=== PATIENT | female | born 1990 | race Caucasian/White ===

== ENCOUNTER 2022-12-08 05:23 | Inpatient (IN) | payer BC ==
[2022-12-08] MEDS ORDERED: METHYLERGONOVINE 0.2 MG/ML 1 ML AMP IM PRN ×2 (06:09→17:22)
[2022-12-08] MEDS ORDERED: LIDOCAINE 0.5% (PF) 5 MG/ML (50 ML SDV) SQ PRN (06:09)
[2022-12-08] MEDS ORDERED: TERBUTALINE 1 MG/ML VIAL SQ PRN (06:09)
[2022-12-08] MEDS ORDERED: miSOPROStoL 200 MCG TAB PO PRN ×2 (06:09→17:22)
[2022-12-08] MEDS ORDERED: CARBOPROST TROMETHAMINE 250 MCG/ML 1 ML AMP IM PRN (06:09)
[2022-12-08] MEDS ORDERED: OXYTOCIN 10 UNIT/ML 1 ML VIAL IM PRN ×2 (06:09→17:22)
[2022-12-08] MEDS ORDERED: TRANEXAMIC ACID IN NACL,ISO-OS 1,000 MG in EMPTY BAG 1 BAG IV PRN ×2 (06:09→17:22)
[2022-12-08 06:20] LABS: Basophils % (A) 0 %; Eosinophils # (A) 0.2 k/uL (0-0.7); Eosinophils % (A) 2 %; HCT 38.9 % (34.0-46.0); HGB 13.1 gm/dL (11.4-16.0); Lymphocytes % (A) 19 %; MCH 27.5 pg (25.0-35.0); MCHC 33.7 g/dL (31.0-37.0); MCV 81.6 fL (80.0-100.0); Mean Platelet Volume 8.7; Monocytes # (A) 0.6 k/uL (0-1.0); Monocytes % (A) 6 %; Neutrophils # (A) 7.5 k/uL (1.3-7.7); Neutrophils % (A) 72 %; Platelet Count 283 k/uL (150-450); RBC 4.77 m/uL (3.80-5.40); RDW 14.8 % (11.5-15.5); WBC 10.5 k/uL (3.8-10.6)
[2022-12-08] MEDS: LACTATED RINGERS 1,000 ML IV SCH ×5 (06:30→22:15)
[2022-12-08] MEDS: OXYTOCIN 30 UNITS/500 ML NS 30 UNIT in SALINE 1 500ML.BAG IV SCH ×2 (06:31→20:17)
[2022-12-08] MEDS ORDERED: SODIUM CHLORIDE 0.9% 100 ML BAG ONE (09:36)
[2022-12-08] MEDS ORDERED: fentaNYL (PF) 50 MCG/ML 5 ML AMP ONE (09:36)
[2022-12-08] MEDS ORDERED: ROPIVACAINE 5 MG/ML 20 ML AMPULE ONE (09:36)
--- NOTE | 2022-12-08 09:57 | P.HPOB ---
History of Present Illness H&P Date: 12/08/22 Chief Complaint: Continuous rupture of membranes This is a 32-year-old 1 para 0 woman with an estimated due date of 12/06/2022 based on LMP consistent with first trimester ultrasound. She presents at 40-2/7 weeks' gestation with spontaneous rupture of membranes and contractions. Upon presentation to labor and delivery on rupture of membranes was confirmed. She was therefore admitted. Her has been complicated by moderate polyhydramnios which has been followed with testing in the outpatient setting. Estimated weight at 36 weeks was also greater than the 90th percentile. Laboratory data: Blood type be negative, antibody screen negative, rubella immune, VDRL nonreactive, hep to be surface antigen negative, HIV negative, gonorrhea and clinic cultures negative, glucose tolerance testing within normal limits, hemoglobin A1c 5.0, group B strep negative. Patient received RhoGAM and teed up in the . Review of Systems All systems: negative Past Medical History Past Medical History: No Reported History History of Any Multi-Drug Resistant Organisms: None Reported Additional Past Surgical History / Comment(s): wisdom teeth Smoking Status: Never smoker Past Drug Use History: None Reported Medications and Allergies Home Medications Medication Instructions Recorded Confirmed Type Aspirin 81 mg PO DAILY 12/08/22 12/08/22 History Vit No.179/Iron/Folic 1 each PO DAILY 12/08/22 12/08/22 History [ Tablet] Allergies Allergy/AdvReac Type Severity Reaction Status Date / Time cinnamon AdvReac Rash/Hives Verified 12/08/22 05:28 Exam Vital Signs Temp Pulse Resp BP Pulse Ox 12/08/22 06:09 96.8 F L 90 16 138/76 12/08/22 05:26 96.8 F L 90 16 138/76 98 Intake and Output 12/07/22 12/08/22 12/08/22 22:59 06:59 14:59 Other: Weight 93.894 kg Targeted physical exam is performed. This is a visibly gravid and uncomfortable-appearing female. On pelvic examination the cervix is 3 cm dilated 70% effaced with a bulging bag of fluids. Artificial rupture of membranes is undertaken and light meconium-stained fluid is noted. heart tones are category 1 and she is madelyn every 2-3 minutes with Pitocin augmentation. Estimated weight is 9+ pounds. Results Result Diagrams: 12/08/22 06:10 Assessment and Plan (1) Spontaneous onset of labor Current Visit: Yes Status: Acute Code(s): VBA5635 - SNOMED Code(s): 79760033 (2) Spontaneous rupture of membranes Current Visit: Yes Status: Acute Code(s): RWS3142 - SNOMED Code(s): 119021037 (3) Polyhydramnios Current Visit: Yes Status: Acute Code(s): O40.9XX0 - POLYHYDRAMNIOS, UNSP TRIMESTER, NOT APPLICABLE OR UNSP SNOMED Code(s): 40628585 (4) Rh negative, maternal Current Visit: Yes Status: Acute Code(s): O26.899 - OTH RELATED CONDITIONS, UNSPECIFIED TRIMESTER; Z67.91 - UNSPECIFIED BLOOD TYPE, RH NEGATIVE SNOMED Code(s): 351991517 (5) Meconium in amniotic fluid Current Visit: Yes Status: Acute Code(s): P96.83 - MECONIUM STAINING SNOMED Code(s): 7006359 Plan: This is a 32-year-old 1 para 0 woman admitted at 40-2/7 weeks' gestation with spontaneous rupture and early labor. She is currently receiving Pitocin augmentation and is progressed to 3 cm. A fore bag was ruptured and light meconium-stained fluid was noted. status is currently reassuring by external monitoring. She is requesting an epidural anesthetic for pain control. She is group B strep negative and Rh-. Continue active management. Patient's for possible shoulder dystocia for delivery have been reviewed with the nursing staff.
[2022-12-08] MEDS ORDERED: CITRIC ACID-SODIUM CITRATE 15 ML CUP PO ONE (17:22)
[2022-12-08] MEDS ORDERED: AZITHROMYCIN 500 MG in SODIUM CHLORIDE 0.9% 250 ML IVPB STA (17:36)
[2022-12-08] MEDS ORDERED: OXYTOCIN 30 UNITS/500 ML NS BAG IV ONE (18:17)
[2022-12-08] MEDS ORDERED: fentaNYL (PF) 50 MCG/ML 2 ML AMP ONE (18:17)
[2022-12-08] MEDS ORDERED: KETOROLAC 15 MG/ML 1 ML VIAL ONE (18:17)
[2022-12-08] MEDS ORDERED: MORPHINE SULFATE (PF) 0.3 MG/0.3 ML SYR ONE (18:17)
[2022-12-08] MEDS ORDERED: SIMETHICONE 80 MG CHEWABLE PO PRN (19:29)
[2022-12-08] MEDS ORDERED: NALOXONE 0.4 MG/ML 1 ML VIAL IV PRN (19:29)
[2022-12-08] MEDS ORDERED: diphenhydrAMINE 50 MG/ML 1 ML VIAL IVP PRN ×2 (19:29)
[2022-12-08] MEDS ORDERED: diphenhydrAMINE 25 MG CAP PO PRN (19:29)
[2022-12-08] MEDS ORDERED: ONDANSETRON 4 MG/2 ML VIAL IVP PRN (19:29)
[2022-12-08] MEDS ORDERED: diphenhydrAMINE 50 MG CAP PO PRN (19:29)
[2022-12-08] MEDS ORDERED: ZOLPIDEM 5 MG TAB PO PRN (19:29)
[2022-12-08] MEDS ORDERED: Rhogam IMMUNE GLOBULIN 1,500 UNIT/1 ML IM ONE (19:29)
[2022-12-08] MEDS ORDERED: METOCLOPRAMIDE 5 MG/ML 2 ML VIAL IVP PRN (19:29)
--- NOTE | 2022-12-08 19:29 | P.PCN ---
Date of Procedure: 12/08/22 Preoperative Diagnosis: 1. Post-dates at 40 weeks and 2 days 2. Failure to progress 3. Persistent category II heart tracing remote from delivery 4. Suspected large for gestational age infant 5. Polyhydramnios Postoperative Diagnosis: Same Procedure(s) Performed: Primary Lower Transverse Section Implants: None Anesthesia: epidural Surgeon: Leann Saavedra Infant Lead Teacher #1: Deborah Balderrama Estimated Blood Loss (ml): 1,987 IV fluids (ml): 1,000 Urine output (ml): 300 Pathology: none sent Condition: stable Disposition: floor Indications for Procedure: This is a 32-year-old 1 para 0 at 40 weeks and 2 days who presented to labor and delivery this morning with spontaneous rupture of membranes and regular uterine contractions. Labor was augmented with Pitocin. Of note, during the fetus was Suspected to be large for gestational age and polyhydramnios was noted. Category II FHT were noted and managed following algorithm including initiation of corrective measures including position changes and fluid boluses. With the persistent presence of intermittent late decelerations, minimal variability, and tachycardia, a patient-centered huddle was held and the need for an expedited deliver was discussed with the patient. It is our clinical recommendation to proceed with the delivery and after questions were answered to the patient agrees to proceed with the recommended plan. The risks, benefits, and alternatives to section were discussed with the patient including risk of bleeding, infection, damage to s urrounding structures including bladder/bowel/ureters. The patient understood these risks and desired to proceed with section. All questions were answered prior to proceeding. Operative Findings: Meconium-stained fluid noted. Viable male in occiput anterior presentation, apgars 9/9, weight 8#15oz. Normal-appearing uterus, bilateral fallopian tubes and ovaries. Description of Procedure: The patient was taken to the operating room where spinal anesthesia was found to be adequate. Two grams of ancef and 500 milligrams of Azithromycin were given for infection prophylaxis. She was prepared vaginally and abdominally. She was draped in the dorsal supine position with a leftward tilt. A Pfannenstiel skin incision was made with the scalpel. The incision was carried down to the fascia. The fascia was incised and extended laterally with Powers scissors. The superior aspect of the fascia was grasped with Chante clamps. The underlying rectus muscle was dissected off sharply with Powers scissors. In a similar fashion, the inferior aspect of the fascia was elevated with Chante clamps and the rectus muscle and pyramidalis were dissected off. Excellent hemostasis was achieved with the bovie. The rectus muscle was in the midline down to the level of the pubic symphysis. Pre-peritoneal fatty tissue was bluntly dissected to expose the peritoneum. The peritoneum was found to be free of adherent bowel and entered sharply with Powers scissors. The peritoneal incision was extended superiorly and inferiorly to the bladder reflection with good visualization of the bladder. The bladder blade was inserted and vesicouterine peritoneum was identified. Intraabdominal survey revealed scant, clear peritoneal fluid and the thinned-out lower uterine segment. The vesicouterine peritoneum was opened with scissors and the bladder flap was developed. The bladder blade was repositioned to keep the bladder out of the operative field. The lower uterine segment was incised with a scalpel. Meconium stained fluid was noted. The uterine incision was extended bluntly with lateral and upward traction. The fetus was in direct occiput anterior position. The head was elevated out of the pelvis with special attention paid to avoid using the uterine incision as a fulcrum. Gentle fundal pressure was applied once the head was brought into the incision. The was delivered with no difficulty. The mouth and nose were suctioned with a bulb. The cord was clamped and cut. The infant was handed off to the home and family living professor. IV oxytocin was initiated to facilitate uterine contractions. The placenta was delivered intact with manual massage of uterine fundus. The uterus was then exteriorized and the inside of the uterus was gently wiped with a lap sponge to assure complete removal of placental membranes. The uterine incision was closed with a 0-Polysorb suture in a running locked fashion. A second imbricating layer with 0-Polysorb was placed. Additional myfznj-dw-yfvjz sutures were used to facilitate hemostasis along the incision. The ovaries and tubes were found to be normal. The uterus, tubes, and ovaries were then gently returned to the abdominal cavity. The blood clots and fluid were wiped out of the abdomen and pelvis with moist laparotomy sponges. The uterine incision was reinspected and excellent hemostasis was noted. The fascial layer was closed with a 0-Vicryl suture. The subcutaneous layer was reapproximated with 2-0 Plain Gut. The skin was closed with 4-0 Monocryl in a subcuticular fashion. The patient tolerated t he procedure well. All the counts were correct times two. The patient was taken to the recovery room in a stable condition.
[2022-12-08] MEDS: ACETAMINOPHEN TAB 500 MG TAB PO SCH (22:20)
[2022-12-08] MEDS: SENNOSIDES-DOCUSATE SODIUM 1 EACH TAB PO SCH (22:21)
[2022-12-08 23:16] LABS: Basophils % (A) 0 %; Eosinophils % (A) 0 %; HCT 34.3 % (34.0-46.0); HGB 11.3 gm/dL (11.4-16.0); Lymphocytes # (A) 1.3 k/uL (1.0-4.8); Lymphocytes % (A) 10 %; MCH 27.1 pg (25.0-35.0); MCHC 32.9 g/dL (31.0-37.0); MCV 82.5 fL (80.0-100.0); Mean Platelet Volume 8.6; Monocytes # (A) 0.6 k/uL (0-1.0); Monocytes % (A) 5 %; Neutrophils # (A) 10.3 k/uL (1.3-7.7); Neutrophils % (A) 84 %; Platelet Count 235 k/uL (150-450); RBC 4.15 m/uL (3.80-5.40); WBC 12.3 k/uL (3.8-10.6)
[2022-12-09] MEDS: KETOROLAC 15 MG/ML 1 ML VIAL IVP SCH ×3 (00:17→06:04)
--- NOTE | 2022-12-09 05:48 | P.PN ---
Progress Note - Text Progress Note Date: 12/09/22 ([id number]) Anesthesia Postop day 1 Subjective: Status Post section with Duramorph. Patient seen and examined. Doing well without complaint. VAS 3 out of 10. No nausea vomiting or pruritus. Afebrile. Gross lower extremity strength intact. Without apparent anesthetic complications. Objective: Vital signs reviewed Heart: Regular Rate Lungs: Good chest excursion Abdomen: Appears nondistended Assessment: Status post with Duramorph postop day 1 Plan: Continue current care with your medical management. Anticipated and the Duramorph section around time today. You may see increased pain needs around this time.
[2022-12-09] MEDS: LACTATED RINGERS 1,000 ML IV SCH ×2 (06:03→19:07)
[2022-12-09] MEDS: SENNOSIDES-DOCUSATE SODIUM 1 EACH TAB PO SCH ×2 (07:46→20:57)
--- NOTE | 2022-12-09 08:06 | P.PNOBGPC ---
Subjective - Subjective Principal diagnosis: s/p primary lower transverse section Interval history: The patient is doing well this morning and had no acute events overnight. She has no complaints this morning. She reports minimal lochia, passing flatus, voiding without difficulty, ambulating, and eating/drinking without nausea or vomiting. She is her without difficulty. She denies chest pain, shortness of breathing, fevers, or chills overnight. She denies pain or swelling in the legs. Patient reports: Reports appetite normal, Reports voiding normally, Reports pain well controlled, Reports ambulating normally : doing well, nursing well Objective - Vital Signs Latest vital signs: Vital Signs Temp Pulse Pulse Resp BP Pulse Ox 12/09/22 03:56 98.2 F 91 16 125/83 95 12/09/22 00:00 97.8 F 84 16 122/77 99 12/08/22 21:17 96 16 125/74 12/08/22 20:47 87 16 126/69 12/08/22 20:17 80 16 119/71 100 12/08/22 20:02 99 16 124/63 99 12/08/22 19:47 97.6 F 95 16 125/58 100 12/08/22 19:32 96 16 112/66 100 12/08/22 19:17 97.7 F 99 16 113/71 100 Intake and Output 12/08/22 12/09/22 12/09/22 22:59 06:59 14:59 Intake Total 233.834 Output Total 2370 1800 Balance -2136.166 -1800 Intake: Intake, IV Titration 233.834 Amount Oxytocin 30 Units/500 ml 233.834 Ns 30 unit In Saline 1 500ml.bag @ Per Protocol IV .Q0M [facility] Rx#:[id number] Output: Urine 300 1800 Uretheral (Haddad) 1400 Estimated Blood Loss 1978 Output, Quantitative 92 Blood Loss - Exam Extremities: Present: normal Abdomen: Present: normal appearance, soft Incision: Present: dressed Uterus: Present: normal, firm - Labs Labs: Abnormal Lab Results - Last 24 Hours (Table) 12/08/22 Range/Units 23:05 WBC 12.3 H (3.8-10.6) k/uL Hgb 11.3 L (11.4-16.0) gm/dL Neutrophils # 10.3 H (1.3-7.7) k/uL Assessment and Plan Assessment: 32 year old now POD#1 s/p 1LTCS at 40 weeks and 2 days 2/2 failure to progress Plan: Continue inpatient management. Patient meeting all postoperative milestones appropriately. Anticipate discharge home tomorrow.
[2022-12-09] MEDS: ACETAMINOPHEN TAB 500 MG TAB PO SCH ×4 (09:28→21:03)
[2022-12-09 12:02] VITALS: RESP 18
[2022-12-09] MEDS: IBUPROFEN 600 MG TAB PO PRN ×2 (12:20→18:33)
[2022-12-10] MEDS: IBUPROFEN 600 MG TAB PO PRN ×3 (00:52→14:18)
[2022-12-10] MEDS: ACETAMINOPHEN TAB 500 MG TAB PO SCH ×2 (03:05→11:40)
[2022-12-10] MEDS: SENNOSIDES-DOCUSATE SODIUM 1 EACH TAB PO SCH (08:15)
--- NOTE | 2022-12-10 09:26 | P.DS ---
Providers Date of admission: 12/08/22 05:55 Expected date of discharge: 12/10/22 Attending physician: Sera Llamas Primary care physician: Stated None Hospital Course: This is a 32-year-old now 1 para 1001 postoperative day #2 status post primary lower transverse section for failure to progress and persistent category 2 heart tracing. The patient is feeling well and desires discharge home today.The patient is doing well this morning and had no acute events overnight. She has no complaints this morning. She reports minimal lochia, passing flatus, voiding without difficulty, ambulating, and eating/drinking without nausea or vomiting. Infant doing well at bedside, will complete circumcision shortly. She denies chest pain, shortness of breathing, fevers, or chills overnight. She denies pain or swelling in the legs. Postoperative restrictions are reviewed with the patient including pelvic rest for 6 weeks, no lifting heavier than 15 pounds for 6 weeks. The patient is encouraged to call the office if she experiences any heavy bleeding, foul- smelling discharge, breast complaints, or any if she has any other concerns. She will follow up in the office with Dr. Llamas in 2 weeks for postoperative ex am. All questions are answered. Assessment: 32 year old POD#2 s/p 1LTCS 2/2 FTP, Persistent Cat II FHTs Patient Condition at Discharge: Good Plan - Discharge Summary Discharge Rx Participant: No New Discharge Prescriptions: New Ibuprofen [Motrin] 600 mg PO Q6HR PRN #30 tab PRN Reason: Mild Pain (Scale 1 To 3) oxyCODONE HCL [Roxicodone] 5 mg PO Q6HR PRN 3 Days #12 tab PRN Reason: Breakthrough Pain Acetaminophen Tab [Tylenol] 650 mg PO Q6H PRN #30 tab PRN Reason: Mild Pain (Scale 1 To 3) No Action Vit No.179/Iron/Folic [ Tablet] 1 each PO DAILY Aspirin 81 mg PO DAILY Discharge Medication List Aspirin 81 mg PO DAILY 12/08/22 [History] Vit No.179/Iron/Folic [ Tablet] 1 each PO DAILY 12/08/22 [History] Acetaminophen Tab [Tylenol] 650 mg PO Q6H PRN #30 tab 12/10/22 [Rx] Ibuprofen [Motrin] 600 mg PO Q6HR PRN #30 tab 12/10/22 [Rx] oxyCODONE HCL [Roxicodone] 5 mg PO Q6HR PRN 3 Days #12 tab 12/10/22 [Rx] Follow up Appointment(s)/Referral(s): Sera Llamas MD [STAFF PHYSICIAN] - 2 Weeks Patient Instructions/Handouts: Depression (DC), Bleeding (DC), (DC), How to Tell if Your Baby is Getting Enough Breast Milk (DC), How to Increase Your Milk Supply (DC) Activity/Diet/Wound Care/Special Instructions: No lifting heavier than 15 pounds for 6 weeks. Pelvic rest for 6 weeks. Discharge Disposition: HOME SELF-CARE
[2022-12-10 16:53] VITALS: BP 127/88; PULSE 78; TEMP 98.1
== END 2022-12-10 17:30 | disposition home or self-care (01) | DRG 788 ==
LOC: FBPOP 05:23 → 4FBP 05:55
PROVIDERS: ADMIT Obstetrics & Gynecology; ATTEND Obstetrics & Gynecology
PROC: 4A0HXCZ Measurement of Products of Conception, Cardiac Rate, External Approach (ICD-10-PCS; 2022-12-08)
PROC: 10907ZC Drainage of Amniotic Fluid, Therapeutic from Products of Conception, Via Natural or Artificial Opening (ICD-10-PCS; 2022-12-08)
PROC: 3E033VJ Introduction of Other Hormone into Peripheral Vein, Percutaneous Approach (ICD-10-PCS; 2022-12-08)
PROC: 10D00Z1 Extraction of Products of Conception, Low, Open Approach (ICD-10-PCS; principal; 2022-12-08 17:54)
DX: O76 Abnormality in fetal heart rate and rhythm complicating labor and delivery (principal); O40.3XX0 Polyhydramnios, third trimester, not applicable or unspecified; O36.63X0 Maternal care for excessive fetal growth, third trimester, not applicable or unspecified; O42.92 Full-term premature rupture of membranes, unspecified as to length of time between rupture and onset of labor; O77.0 Labor and delivery complicated by meconium in amniotic fluid; O48.0 Post-term pregnancy; O62.2 Other uterine inertia; Z37.0 Single live birth; Z3A.40 40 weeks gestation of pregnancy; Z79.82 Long term (current) use of aspirin; Z91.018 Allergy to other foods
CPT/HCPCS: 59025; 84112; 85025; 86850; 86900; 86901; 99213

== ENCOUNTER → 2023-06-21 | Outpatient (CLI) | payer BC ==
--- NOTE | 2023-06-21 09:03 | US ---
EXAMINATION TYPE: US abdomen complete DATE OF EXAM: 06/21/2023 COMPARISON: NONE CLINICAL INDICATION: Female, 32 years old with history of R10.11 RIGHT UPPER QUADRANT PAIN; RUQ pain that comes and goes. No other symptoms. TECHNIQUE: Multiple sonographic images of the abdomen are obtained. FINDINGS: EXAM MEASUREMENTS: Liver Length: 14.0 cm Gallbladder Wall: 0.4 cm CBD: 1.2 cm Spleen: 10.6 cm Right Kidney: 10.3 x 4.5 x 4.7 cm Left Kidney: 10.9 x 5.3 x 4.9 cm AEROBICS INSTRUCTOR NOTES: Limited visualization due to patient body habitus and overlying bowel gas Pancreas: Obscured by bowel gas Liver: Posterior aspect obscured by bowel gas. Gallbladder: Multiple echogenic foci seen throughout. Wall slightly thickened Evidence for sonographic Pate's sign: No CBD: dilated Spleen: wnl Right Kidney: No hydronephrosis or masses seen as best visualized Left Kidney: No hydronephrosis or masses seen as best visualized Upper IVC: wnl Abd Aorta: Prox obscured by bowel gas, mid and distal WNL The liver is homogenous. The intrahepatic portion of the IVC and proximal abdominal aorta are within normal limits. Common bile duct is unremarkable. The visualized portions of the pancreas are homoge nous. The spleen is unremarkable. Kidneys are symmetric and free of hydronephrosis. No renal lesio ns are seen. IMPRESSION: Multiple gallstones with mild gallbladder wall thickening.
== END | disposition home or self-care (01) ==
LOC: RADUSWWP 07:58
PROVIDERS: ATTEND Family Medicine
DX: K80.20 Calculus of gallbladder without cholecystitis without obstruction (principal); K82.8 Other specified diseases of gallbladder
CPT/HCPCS: 76700

== ENCOUNTER → 2023-07-06 | Day surgery (SDC) | payer BC ==
[2023-07-04 10:37] VITALS: BMI 34.0
[~2023-07-06] MED LIST: ACETAMINOPHEN TAB 500 MG TAB PO STA; DEXAMETHASONE SOD PHOSPHATE 4 MG/ML 1 ML VIAL IVP ONE; FAMOTIDINE 20 MG/2 ML VIAL IVP ONE; GLYCOPYRROLATE 0.2 MG/ML 2 ML VIAL ONE; HEPARIN SODIUM,PORCINE 5,000 UNIT/ML 1 ML VIAL SQ PRN; HYDROmorphone (PF) 1 MG/ML ONE; HYDROmorphone 0.5 MG/0.5 ML SYRINGE IVP PRN; INDOCYANINE GREEN 25 MG VIAL IV STA; KETAMINE HCL IN 0.9 % NACL 50 MG/5 ML SYRINGE ONE; KETOROLAC 15 MG/ML 1 ML VIAL ONE; LACTATED RINGERS 1,000 ML IV ONE; LIDOCAINE 0.5%-EPI 1:200,000 50 ML VIAL SQ ONE; LIDOCAINE 1% INJ 10MG/ML (20 ML MDV) ONE; MIDAZOLAM 2 MG/2 ML VIAL IV PRN; MIDAZOLAM 2 MG/2 ML VIAL ONE; NEOSTIGMINE 1 MG/ML 10 ML VIAL ONE; ONDANSETRON 4 MG/2 ML VIAL IVP STA; PHENYLEPHRINE 10 MG/ML VIAL ONE; PROPOFOL 10 MG/ML 20 ML VIAL IV ONE; ROCURONIUM 10 MG/ML (5 ML VIAL) IV ONE; SCOPOLAMINE 1 MG/72 HR PATCH TRANSDERM STA; SUCCINYLCHOLINE CHLORIDE 200 MG/10 ML VIAL IV ONE; fentaNYL (PF) 50 MCG/ML 2 ML AMP ONE
[2023-07-06] MEDS: LACTATED RINGERS 1,000 ML IV SCH ×2 (09:14→11:40)
[2023-07-06 09:20] LABS: Basophils # (A) 0.1 k/uL (0-0.2); Basophils % (A) 1 %; Eosinophils # (A) 0.3 k/uL (0-0.7); Eosinophils % (A) 4 %; HCT 45.7 % (34.0-46.0); HGB 14.7 gm/dL (11.4-16.0); Lymphocytes # (A) 2.2 k/uL (1.0-4.8); Lymphocytes % (A) 24 %; MCH 27.7 pg (25.0-35.0); MCHC 32.2 g/dL (31.0-37.0); Mean Platelet Volume 9.2; Monocytes # (A) 0.5 k/uL (0-1.0); Monocytes % (A) 6 %; Neutrophils % (A) 65 %; Platelet Count 287 k/uL (150-450); RBC 5.32 m/uL (3.80-5.40); RDW 14.5 % (11.5-15.5); WBC 9.3 k/uL (3.8-10.6)
[2023-07-06 09:32] LABS: ALT 283 U/L (4-34); AST 66 U/L (14-36); African American GFR (CKD) >90 (>60 ml/min/1.73 sqM); Albumin 4.8 g/dL (3.5-5.0); Alkaline Phosphatase 272 U/L (38-126); Anion Gap 14 mmol/L; Blood Urea Nitrogen 17 mg/dL (7-17); Calcium 9.5 mg/dL (8.4-10.2); Carbon Dioxide 24 mmol/L (22-30); Chloride 103 mmol/L (98-107); Glucose 82 mg/dL (74-99); Non-African American GFR(CKD) >90 (>60 ml/min/1.73 sqM); Potassium 3.9 mmol/L (3.5-5.1); Sodium 141 mmol/L (137-145); Total Bilirubin 1.1 mg/dL (0.2-1.3); Total Protein 8.3 g/dL (6.3-8.2)
--- NOTE | 2023-07-06 09:46 | P.GSHP ---
History of Present Illness H&P Date: 07/06/23 CHIEF COMPLAINT: Cholecystitis HISTORY OF PRESENT ILLNESS: The patient is a 32-year-old female who presents with history of epigastric including right upper quadrant abdominal pain. She underwent diagnostic studies for her gallbladder. Separately her clinical picture was consistent with cholecystitis. Now she presents for surgical intervention. PAST MEDICAL HISTORY: Please see list PAST SURGICAL HISTORY: Please see list MEDICATIONS: Please see list ALLERGIES: Please see list SOCIAL HISTORY: Please see list FAMILY HISTORY: Please see list REVIEW OF ORGAN SYSTEMS: CONSTITUTIONAL: No reports of fevers or chills. HEENT: Denies any troubles with the vision or hearing. ENDOCRINE: No reports of hypothyroidism. No diabetes. RESPIRATORY: No recent pneumonias. CARDIOVASCULAR: Denies chest pain or palpitations GI: No blood in stools or constipation. MUSCULOSKELETAL: Has occasional joint pain including back pain. NEURO: No seizure disorders or headaches. No recent stroke. PSYCH: No depression or suicidal ideation. GENITOURINARY: No active blood in urine. No urinary hesitancy. HEMATOLOGIC: No personal or family history of DVTs or pulmonary emboli. SKIN: No skin cancer. PHYSICAL EXAM: VITAL SIGNS: Afebrile vital signs stable GENERAL: Well-developed pleasant in no acute distress. HEENT: No scleral icterus. Extraocular movements grossly intact. Moist buccal mu cosa. NECK: Supple without lymphadenopathy. CHEST: Unlabored respirations. Equal bilateral excursions. CARDIOVASCULAR: Regular rate regular rhythm rhythm. Distal 2+ pulses. ABDOMEN: Soft, nondistended. Tender along the epigastrium and right upper quadrant. MUSCULOSKELETAL: No clubbing, cyanosis, or edema. NEURO: Cranial nerves II to XII within normal limits. No focal or lateralizing signs. PSYCH: Alert and oriented to person, place and time. SKIN: Well-perfused good skin turgor. ASSESSMENT: 1. Epigastric and right upper quadrant abdominal pain 2. Chronic cholecystitis 3. Symptomatic gallstones. PLAN: 1. Will need a robotic cholecystectomy possible open. Benefits and risks were described. 2. Heparin for DVT prophylaxis 5000 units. 3. Antibiotic prophylaxis. 4. CBC and CMP on day of procedure 5. Non-narcotic pre and post op pain management reviewed. 6. Indocyanine green for biliary imaging. Past Medical History Past Medical History: No Reported History Additional Past Medical History / Comment(s): 6 mos post , intermittent abd pain and n/v History of Any Multi-Drug Resistant Organisms: None Reported Past Surgical History: Section Additional Past Surgical History / Comment(s): wisdom teeth Past Anesthesia/Blood Transfusion Reactions: No Reported Reaction Additional Past Anesthesia/Blood Transfusion Reaction / Comment(s): no hx blood transfusion Smoking Status: Never smoker - Past Family History Mother Family Medical History: No Reported History Additional Family Medical History / Comment(s): maternal aunt breast CA Father Additional Family Medical History / Comment(s): paternal grandmother lung,colon,breast CA Medications and Allergies Home Medications Medication Instructions Recorded Confirmed Type Vit No.179/Iron/Folic 1 each PO DAILY 12/08/22 07/04/23 History [ Tablet] Allergies Allergy/AdvReac Type Severity Reaction Status Date / Time cinnamon AdvReac Rash/Hives Verified 07/06/23 08:57 Surgical - Exam Vital Signs Temp Pulse Resp BP Pulse Ox 97.4 F L 83 16 123/85 95 07/06/23 09:03 07/06/23 09:03 07/06/23 09:03 07/06/23 09:03 07/06/23 09:03 Results - Labs 07/06/23 08:09 07/06/23 08:09 Abnormal Lab Results - Last 24 Hours (Table) 07/06/23 Range/Units 08:09 AST 66 H (14-36) U/L ALT 283 H (4-34) U/L Alkaline Phosphatase 272 H (38-126) U/L Total Protein 8.3 H (6.3-8.2) g/dL Diabetes panel 07/06/23 Range/Units 08:09 Sodium 141 (137-145) mmol/L Potassium 3.9 (3.5-5.1) mmol/L Chloride 103 (98-107) mmol/L Carbon Dioxide 24 (22-30) mmol/L BUN 17 (7-17) mg/dL Creatinine 0.64 (0.52-1.04) mg/dL Glucose 82 (74-99) mg/dL Calcium 9.5 (8.4-10.2) mg/dL AST 66 H (14-36) U/L ALT 283 H (4-34) U/L Alkaline Phosphatase 272 H (38-126) U/L Total Protein 8.3 H (6.3-8.2) g/dL Albumin 4.8 (3.5-5.0) g/dL Calcium panel 07/06/23 Range/Units 08:09 Calcium 9.5 (8.4-10.2) mg/dL Albumin 4.8 (3.5-5.0) g/dL Pituitary panel 07/06/23 Range/Units 08:09 Sodium 141 (137-145) mmol/L Potassium 3.9 (3.5-5.1) mmol/L Chloride 103 (98-107) mmol/L Carbon Dioxide 24 (22-30) mmol/L BUN 17 (7-17) mg/dL Creatinine 0.64 (0.52-1.04) mg/dL Glucose 82 (74-99) mg/dL Calcium 9.5 (8.4-10.2) mg/dL Adrenal panel 07/06/23 Range/Units 08:09 Sodium 141 (137-145) mmol/L Potassium 3.9 (3.5-5.1) mmol/L Chloride 103 (98-107) mmol/L Carbon Dioxide 24 (22-30) mmol/L BUN 17 (7-17) mg/dL Creatinine 0.64 (0.52-1.04) mg/dL Glucose 82 (74-99) mg/dL Calcium 9.5 (8.4-10.2) mg/dL Total Bilirubin 1.1 (0.2-1.3) mg/dL AST 66 H (14-36) U/L ALT 283 H (4-34) U/L Alkaline Phosphatase 272 H (38-126) U/L Total Protein 8.3 H (6.3-8.2) g/dL Albumin 4.8 (3.5-5.0) g/dL
--- NOTE | 2023-07-06 09:49 | P.HPADDEND ---
H&P Addendum H&P Addendum Date: 07/06/23 Patient presents with features of common bile duct stones, choledocholithiasis. Patient had previously elevated total bilirubin 4.5 at her primary care provider's office. Risk of retained common bile duct stone also described. Risk of ERCP following gallbladder removal was also described. Will need repeat liver enzymes following cholecystectomy. Additionally any increased pain or persistent abdominal pain will warrant additional intervention postoperatively. Patient and family agreed with benefits and risks.
--- NOTE | 2023-07-06 11:12 | P.OP ---
Date of Procedure: 07/06/23 Description of Procedure: SURGEON: CANDICE GARCIA MD PREOPERATIVE DIAGNOSES: 1. Symptomatic gallstones 2. Right upper quadrant abdominal pain 3. History of choledocholithiasis 4. History of jaundice 5. Obesity due to excess calories, BMI 34.0 POSTOPERATIVE DIAGNOSES: 1. Symptomatic gallstone 2. Right upper quadrant abdominal pain 3. Chronic cholecystitis with cystic duct obstruction 4. Peritoneal adhesions, right upper quadrant 5. History of choledocholithiasis 6. History of jaundice 7. Obesity due to excess calories, BMI 34.0 OPERATION: 1. Robotic-assisted da Silvana Xi laparoscopic cholecystectomy, multiport with FIREFLY ESTIMATED BLOOD LOSS: 5 mL. SPECIMENS REMOVED: Gallbladder. COMPLICATIONS: None. OPERATIVE FINDINGS: 1. Partial filling of gallbladder consistent with cholecystitis with cystic duct obstruction 2. Mild dilation of common bile duct with risk of choledocholithiasis INDICATIONS: The patient is a 32-year-old female who presents with symptomatic gallstones and recent history of total bilirubin 4.5, jaundice and clinical history of choledocholithiasis. Robotic assisted laparoscopic approach was described. Benefits and risks of the procedure including but not limited to bleeding, infection, injury to the biliary tree was described. Informed consent was obtained. DESCRIPTION OF PROCEDURE: Patient was brought to the operating room, placed in supine position. After general induction, the abdomen had been prepped and draped in standard sterile fashion. The robotic da Silvana XI system was primed. After a timeout protocol was performed, the patient had been prepped and draped in standard sterile fashion. The patient was injected with indocyanine green. A 5 mm 0 degrees laparoscopic trocar entry was performed along the left upper quadrant. The abdomen insufflated to 15 mmHg pressure which was tolerated well. Diagnostic laparoscopy demonstrated no injury to bowel viscera or mesentery. The liver surface was unremarkable. Next, two 8 mm robotic ports were placed along the right upper abdomen. The camera 8-mm port was maintained along the epigastrium. Another 8 mm port was placed along the left upper abdominal wall after exchanging the 5 mm port. Please note that the ports were placed at least 10 to 15 cm away from the target anatomy of the gallbladder. The robot was docked along the left lateral abdomen. The patient was repositioned in reverse Trendelenburg position. Using a grasper for arm 3, a grasper for arm 4, including hook cautery for arm 1, the robotic system was docked and primed as described. Instruments were interchanged by the photo studio assistant including hook cautery, Bovie cautery and clip appliers. I had sat at the console. The gallbladder was scarred with peritoneal adhesions. Lysis of adhesions was performed to free the gallbladder from the surrounding tissues. Next attention was brought to the infundibulum and cystic structures. The infundibulum and cystic duct were dissected free from surrounding tissues. The cystic duct was isolated. Common bile duct was mildly dilated. FIREFLY was used to identify the cystic artery and cystic structures. A critical view of safety was obtained. Large PLASTIC clips were used throughout the entire case. Using a clip cyber systems engineer, 2 clips were placed at the junction of the infundibulum and cystic duct. The cystic duct was divided between clips. Next, the cystic artery was similarly clipped and cauterized. Electro-Bovie cautery was used to remove the gallbladder from the hepatic fossa. Hemostasis was checked and found to be adequate. The robot was undocked. I re-scrubbed into the case. Using a 10 mm Endo Catch bag via the left upper quadrant incision, the specimen was removed from the abdominal cavity. All pneumoperitoneum instruments were evacuated from the abdominal cavity. The incisions were reapproximated using 4-0 Monocryl in an interrupted subcuticular fashion. Fascial defects were less than 8 mm in size. Please note along the trocar sites, local anesthetic was placed as a field block prior to insertion of all instruments. Liquid glue was applied to the skin. At the end of the procedure needle, sponge, and instrument count had been verified correct by the surgical nurse. The patient was transferred to postanesthesia care unit in stable condition. Intraoperative films were shared with the patient's family. Plan - Discharge Summary Discharge Rx Participant: No New Discharge Prescriptions: New Ibuprofen [Motrin] 600 mg PO Q8HR PRN #30 tab PRN Reason: Pain Acetaminophen Tab [Tylenol Tab] 1,000 mg PO Q6HR PRN #30 tablet PRN Reason: Pain Simethicone [Gas-X] 125 mg PO AC-TID PRN #20 capsule PRN Reason: Pain Continue Vit No.179/Iron/Folic [ Tablet] 1 each PO DAILY Discharge Medication List Vit No.179/Iron/Folic [ Tablet] 1 each PO DAILY 12/08/22 [History] Acetaminophen Tab [Tylenol Tab] 1,000 mg PO Q6HR PRN #30 tablet 07/06/23 [Rx] Ibuprofen [Motrin] 600 mg PO Q8HR PRN #30 tab 07/06/23 [Rx] Simethicone [Gas-X] 125 mg PO AC-TID PRN #20 capsule 07/06/23 [Rx] Follow up Appointment(s)/Referral(s): Candice Garcia MD [STAFF PHYSICIAN] - 07/10/23 5:00 pm (TELEHEALTH) Ambulatory/Diagnostic Orders: Complete Blood Count w/diff [LAB.AMB] Location: None Selected Comprehensive Metabolic Panel [LAB.AMB] Location: None Selected Patient Instructions/Handouts: *Surgery [facility] - Scopalamine Patch Instructions, Laparoscopic Cholecystectomy (DC) Activity/Diet/Wound Care/Special Instructions: TELEHEALTH - DR WILL CALL YOU BETWEEN 8 am to 8 pm DISCARD BREASTMILK FOR 48hrs prior to breast feeding. Recommend low-fat diet for the next 2 days. No lifting over 10 pounds in 2 weeks until Jul 20. November shower. No bath tub soaks for two weeks until Jul 20. Diet as tolerated. Use Tylenol, simethicone and ibuprofen or Aleve scheduled for the next 24-48 hours for best pain relief. Use ice along incisions for today to prevent swelling. Discharge Disposition: HOME SELF-CARE
[2023-07-06 11:34] VITALS: TEMP 97
[2023-07-06 13:35] VITALS: RESP 14
[2023-07-06 14:00] VITALS: BP 110/76; PULSE 92
== END | disposition home or self-care (01) ==
LOC: OR 08:36
PROVIDERS: ATTEND Surgery Plastic and Reconstructive Surgery
DX: K80.10 Calculus of gallbladder with chronic cholecystitis without obstruction (principal); K66.0 Peritoneal adhesions (postprocedural) (postinfection); E66.09 Other obesity due to excess calories; Z68.34 Body mass index [BMI] 34.0-34.9, adult; Z98.891 History of uterine scar from previous surgery; Z98.890 Other specified postprocedural states; Z80.3 Family history of malignant neoplasm of breast; Z79.899 Other long term (current) drug therapy
CPT/HCPCS: 81025; 88304; 80053; 85025; 47562; J2250; J0330; J1644; J1100; J2710; J0690; J2405; J2001; J3010; J3490; J1170; J1885; J2704; J2371

== ENCOUNTER 2023-07-09 16:24 | Emergency (ER) | payer BC ==
[2023-07-09 16:37] VITALS: RESP 16; TEMP 97.8
--- NOTE | 2023-07-09 17:12 | ED ---
General Adult HPI - General Chief complaint: GI Bleed Stated complaint: Blood in stool Time Seen by Provider: 07/09/23 16:37 Source: patient Mode of arrival: ambulatory Limitations: no limitations - History of Present Illness Initial comments: 32-year-old female presenting to the ED with a chief complaint of GI bleeding. Patient notes she had a laparoscopic cholecystectomy on Reports sore after a bowel movement stated that there was what appeared to be blood in the stool. Today, patient states her bowel movement had some streaks of blood in the stool and also notes some streaks when she wiped. No clots. Deniesd abdominal pain. No nausea or vomiting. No changes in urinary symptoms. No fever or chills. No chest pain or shortness of breath. No dizziness. No other complaints. - Related Data Home Medications Medication Instructions Recorded Confirmed Vit No.179/Iron/Folic 1 each PO DAILY 12/08/22 07/04/23 [ Tablet] Previous Rx's Medication Instructions Recorded Acetaminophen Tab [Tylenol Tab] 1,000 mg PO Q6HR PRN #30 tablet 07/06/23 Ibuprofen [Motrin] 600 mg PO Q8HR PRN #30 tab 07/06/23 Simethicone [Gas-X] 125 mg PO AC-TID PRN #20 capsule 07/06/23 Allergies Allergy/AdvReac Type Severity Reaction Status Date / Time cinnamon AdvReac Rash/Hives Verified 07/09/23 16:28 Review of Systems ROS Statement: Those systems with pertinent positive or pertinent negative responses have been documented in the HPI. ROS Other: All systems not noted in ROS Statement are negative. Past Medical History Past Medical History: No Reported History Additional Past Medical History / Comment(s): 6 mos post , intermittent abd pain and n/v History of Any Multi-Drug Resistant Organisms: None Reported Past Surgical History: Section Additional Past Surgical History / Comment(s): c section December 2022,wisdom teeth Past Anesthesia/Blood Transfusion Reactions: No Reported Reaction Additional Past Anesthesia/Blood Transfusion Reaction / Comment(s): no hx blood transfusion Past Psychological History: No Psychological Hx Reported Smoking Status: Never smoker - Past Family History Mother Family Medical History: No Reported History Additional Family Medical History / Comment(s): maternal aunt breast CA Father Additional Family Medical History / Comment(s): paternal grandmother lung,colon,breast CA General Exam Limitations: no limitations General appearance: alert, in no apparent distress Eye exam: Present: normal appearance Neck exam: Present: normal inspection Respiratory exam: Present: normal lung sounds bilaterally Cardiovascular Exam: Present: regular rate, normal rhythm GI/Abdominal exam: Present: soft (Nontender. No rebound guarding or rigidity. Surgical sites appear clean and dry and intact without warmth, erythema, edema, or tenderness to palpation.) External exam: Present: other (Exam chaperoned by Violette TOWNSEND. No external hemorrhoids. No internal hemorrhoids palpated. No gross active bleeding. Some stool in rectal vault.) Neurological exam: Present: alert, oriented X3 Skin exam: Present: warm, dry Course Vital Signs 07/09/23 07/09/23 16:26 19:13 Temperature 97.8 F Pulse Rate 77 98 Respiratory 16 16 Rate Blood Pressure 138/98 127/68 O2 Sat by Pulse 98 98 Oximetry Medical Decision Making - Medical Decision Making Was pt. sent in by a medical professional or institution (, PA, VICE PRESIDENT OF SOFTWARE ENGINEERING, urgent care, hospital, or [facility]...) When possible be specific @ -No Did you speak to anyone other than the patient for history (EMS, parent, family, police, friend...)? What history was obtained from this source @ -No Did you review nursing and triage notes (agree or disagree)? Why? @ -I reviewed and agree with nursing and triage notes Were old charts reviewed (outside hosp., previous admission, EMS record, old EKG, old radiological studies, urgent care reports/EKG's, [facility] records)? Report findings @ -No old charts were reviewed Differential Diagnosis (chest pain, altered mental status, abdominal pain women, abdominal pain men, vaginal bleeding, weakness, fever, dyspnea, syncope, headache, dizziness, GI bleed, back pain, seizure, CVA, palpatations, mental health, musculoskeletal)? @ -Differential GI Bleed: Esophageal varices, aortoenteric fistula, Rita-Ayers, gastritis, peptic ulcer disease, diverticulosis, inflammatory bowel disease, hemorrhoids, fissure, co litis, malignancy, Meckels diverticulum, this is not meant to be an all- inclusive list. EKG interpreted by me (3pts min.). @ -None X-rays interpreted by me (1pt min.). @ -None done CT interpreted by me (1pt min.). @ -CT of the abdomen and pelvis and to her by me showing no evidence of acute process. U/S interpreted by me (1pt. min.). @ -None done What testing was considered but not performed or refused? (CT, X-rays, U/S, labs )? Why? @ -None What meds were considered but not given or refused? Why? @ -None Did you discuss the management of the patient with other professionals (professionals i.e. DrFelipa, PA, VICE PRESIDENT OF SOFTWARE ENGINEERING, lab, RT, psych nurse, director of social media marketing, silicator, teacher, police booking officer, case maker)? Give summary @ -Case discussed with Dr. Cunningham, who advised patient stable for outpatient follow up. Was smoking cessation discussed for >3mins.? @ -No Was critical care preformed (if so, how long)? @ -No Were there social determinants of health that impacted care today? How? (Homelessness, low income, unemployed, alcoholism, drug addiction, transportation, low edu. Level, literacy, decrease access to med. care, care home, rehab)? @ -No Was there de-escalation of care discussed even if they declined (Discuss DNR or withdrawal of care, Hospice)? DNR status @ -No What co-morbidities impacted this encounter? (DM, HTN, Smoking, COPD, CAD, Cancer, CVA, ARF, Chemo, Hep., AIDS, mental health diagnosis, sleep apnea, morbid obesity)? @ -Recent laproscopic cholecystectomy Was patient admitted / discharged? Hospital course, mention meds given and route, prescriptions, significant lab abnormalities, going to OR and other pertinent info. @ -Discharge 32-year-old female with history of recent laparoscopic cholecystectomy presenting to the ED with 2 episodes of bright red blood in the stool. Laboratory studies reviewed. The CT shows hemoglobin stable at 14. Chemistry panel does to some transaminitis however no other acute findings. CT abdomen and pelvis showed no evidence of acute process. Case was discussed with surgery senior production manager who advised patient stable for outpatient follow-up. Discharged home in stable condition. Discussed strict return precautions with patient and family who verbalized agreement. Undiagnosed new problem with uncertain prognosis? @ -No Drug Therapy requiring intensive monitoring for toxicity (Heparin, Nitro, Ins ulin, Cardizem)? @ -No Were any procedures done? @ -No Diagnosis/symptom? @ -Blood in the stool Acute, or Chronic, or Acute on Chronic? @ -Acute Uncomplicated (without systemic symptoms) or Complicated (systemic symptoms)? @ -Uncomplicated Side effects of treatment? @ -No Exacerbation, Progression, or Severe Exacerbation? @ -No Poses a threat to life or bodily function? How? (Chest pain, [place], [place], pneumonia, PE, COPD, DKA, ARF, appy, cholecystitis, CVA, Diverticulitis, Homicidal, Suicidal, threat to staff... and all critical care pts) @ -No - Lab Data Result diagrams: 07/09/23 17:17 07/09/23 17:17 Lab Results 07/09/23 07/09/23 07/09/23 Range/Units 17:17 17:17 17:17 WBC 7.7 (3.8-10.6) k/uL RBC 5.02 (3.80-5.40) m/uL Hgb 14.1 (11.4-16.0) gm/dL Hct 42.9 (34.0-46.0) % MCV 85.6 (80.0-100.0) fL MCH 28.1 (25.0-35.0) pg MCHC 32.8 (31.0-37.0) g/dL RDW 14.1 (11.5-15.5) % Plt Count 282 (150-450) k/uL MPV 8.5 Neutrophils % 59 % Lymphocytes % 29 % Monocytes % 6 % Eosinophils % 4 % Basophils % 1 % Neutrophils # 4.5 (1.3-7.7) k/uL Lymphocytes # 2.2 (1.0-4.8) k/uL Monocytes # 0.5 (0-1.0) k/uL Eosinophils # 0.3 (0-0.7) k/uL Basophils # 0.0 (0-0.2) k/uL Sodium (137-145) mmol/L Potassium (3.5-5.1) mmol/L Chloride (98-107) mmol/L Carbon Dioxide (22-30) mmol/L Anion Gap mmol/L BUN (7-17) mg/dL Creatinine (0.52-1.04) mg/dL Est GFR (CKD-EPI)AfAm (>60 ml/min/1.73 sqM) Est GFR (CKD-EPI)NonAf (>60 ml/min/1.73 sqM) Glucose (74-99) mg/dL Calcium (8.4-10.2) mg/dL Total Bilirubin (0.2-1.3) mg/dL AST (14-36) U/L ALT (4-34) U/L Alkaline Phosphatase (38-126) U/L Total Protein (6.3-8.2) g/dL Albumin (3.5-5.0) g/dL Urine Color Light Yellow Urine Appearance Cloudy H (Clear) Urine pH 7.0 (5.0-8.0) Ur Specific [place] 1.020 (1.001-1.035) Urine Protein Negative (Negative) Urine Glucose (UA) Negative (Negative) Urine Ketones Negative (Negative) Urine Blood Negative (Negative) Urine Nitrite Negative (Negative) Urine Bilirubin Negative (Negative) Urine Urobilinogen <2.0 (<2.0) mg/dL Ur Leukocyte Esterase Trace H (Negative) Urine RBC 1 (0-5) /hpf Urine WBC 3 (0-5) /hpf Ur Squamous Epith Cells 35 H (0-4) /hpf Urine Mucus Rare H (None) /hpf Stool Occult Blood Positive H (Negative) 07/09/23 Range/Units 17:17 WBC (3.8-10.6) k/uL RBC (3.80-5.40) m/uL Hgb (11.4-16.0) gm/dL Hct (34.0-46.0) % MCV (80.0-100.0) fL MCH (25.0-35.0) pg MCHC (31.0-37.0) g/dL RDW (11.5-15.5) % Plt Count (150-450) k/uL MPV Neutrophils % % Lymphocytes % % Monocytes % % Eosinophils % % Basophils % % Neutrophils # (1.3-7.7) k/uL Lymphocytes # (1.0-4.8) k/uL Monocytes # (0-1.0) k/uL Eosinophils # (0-0.7) k/uL Basophils # (0-0.2) k/uL Sodium 143 (137-145) mmol/L Potassium 3.7 (3.5-5.1) mmol/L Chloride 105 (98-107) mmol/L Carbon Dioxide 24 (22-30) mmol/L Anion Gap 14 mmol/L BUN 10 (7-17) mg/dL Creatinine 0.60 (0.52-1.04) mg/dL Est GFR (CKD-EPI)AfAm >90 (>60 ml/min/1.73 sqM) Est GFR (CKD-EPI)NonAf >90 (>60 ml/min/1.73 sqM) Glucose 79 (74-99) mg/dL Calcium 9.5 (8.4-10.2) mg/dL Total Bilirubin 0.8 (0.2-1.3) mg/dL AST 58 H (14-36) U/L ALT 145 H (4-34) U/L Alkaline Phosphatase 197 H (38-126) U/L Total Protein 7.9 (6.3-8.2) g/dL Albumin 4.6 (3.5-5.0) g/dL Urine Color Urine Appearance (Clear) Urine pH (5.0-8.0) Ur Specific [place] (1.001-1.035) Urine Protein (Negative) Urine Glucose (UA) (Negative) Urine Ketones (Negative) Urine Blood (Negative) Urine Nitrite (Negative) Urine Bilirubin (Negative) Urine Urobilinogen (<2.0) mg/dL Ur Leukocyte Esterase (Negative) Urine RBC (0-5) /hpf Urine WBC (0-5) /hpf Ur Squamous Epith Cells (0-4) /hpf Urine Mucus (None) /hpf Stool Occult Blood (Negative) Disposition Clinical Impression: Blood in the stool Disposition: HOME SELF-CARE Condition: Good Instructions (If sedation given, give patient instructions): Gastrointestinal Bleeding (ED) Additional Instructions: Please return to the Emergency Department if symptoms worsen or any other concerns. Please follow up with your surgeon as scheduled. Is patient prescribed a controlled substance at d/c from ED?: No Referrals: Nino Rogers MD [Primary Care Provider] - 1-2 days Time of Disposition: 21:22
[2023-07-09 17:50] LABS: Basophils % (A) 1 %; Eosinophils # (A) 0.3 k/uL (0-0.7); Eosinophils % (A) 4 %; HCT 42.9 % (34.0-46.0); HGB 14.1 gm/dL (11.4-16.0); Lymphocytes # (A) 2.2 k/uL (1.0-4.8); Lymphocytes % (A) 29 %; MCH 28.1 pg (25.0-35.0); MCHC 32.8 g/dL (31.0-37.0); MCV 85.6 fL (80.0-100.0); Mean Platelet Volume 8.5; Monocytes # (A) 0.5 k/uL (0-1.0); Monocytes % (A) 6 %; Neutrophils # (A) 4.5 k/uL (1.3-7.7); Neutrophils % (A) 59 %; Platelet Count 282 k/uL (150-450); RBC 5.02 m/uL (3.80-5.40); RDW 14.1 % (11.5-15.5); WBC 7.7 k/uL (3.8-10.6)
[2023-07-09 18:02] LABS: ALT 145 U/L (4-34); AST 58 U/L (14-36); African American GFR (CKD) >90 (>60 ml/min/1.73 sqM); Albumin 4.6 g/dL (3.5-5.0); Alkaline Phosphatase 197 U/L (38-126); Anion Gap 14 mmol/L; Blood Urea Nitrogen 10 mg/dL (7-17); Calcium 9.5 mg/dL (8.4-10.2); Carbon Dioxide 24 mmol/L (22-30); Chloride 105 mmol/L (98-107); Glucose 79 mg/dL (74-99); Non-African American GFR(CKD) >90 (>60 ml/min/1.73 sqM); Potassium 3.7 mmol/L (3.5-5.1); Sodium 143 mmol/L (137-145); Total Bilirubin 0.8 mg/dL (0.2-1.3); Total Protein 7.9 g/dL (6.3-8.2)
[2023-07-09 18:03] LABS: Appearance,Urine Cloudy (Clear); Bilirubin,Urine Negative (Negative); Blood,Urine Negative (Negative); Color,Urine Light Yellow; Glucose,Urine (UA) Negative (Negative); Ketones,Urine Negative (Negative); Leukocyte Esterase,Urine Trace (Negative); Mucus,Urine Rare /hpf; Nitrite,Urine Negative (Negative); Protein,Urine Negative (Negative); RBC,Urine 1 /hpf (0-5); Squamous Epithelial Cell,Urine 35 /hpf (0-4); Urobilinogen,Urine <2.0 mg/dL (<2.0); WBC,Urine 3 /hpf (0-5)
[2023-07-09 19:37] VITALS: BP 127/68; PULSE 98
--- NOTE | 2023-07-09 20:23 | CT ---
EXAMINATION TYPE: CT angio abdomen pelvis CT DLP: 2175.2 mGycm, Automated exposure control for dose reduction was used. DATE OF EXAM: 07/09/2023 7:55 PM COMPARISON: Ultrasound 06/21/2023. CLINICAL INDICATION:Female, 32 years old with history of s/p lap alonso 07/06 GI bleed protocol; [facility], Blood in stool, gallbladder removed x 3 days ago. TECHNIQUE: Multiple thin slice sub-millimeter images were obtained after administration of contrast. 3-D reconstructed images and maximum intensity projection images were obtained. CT angio abdomen pel vis CT Contrast: Contrast used:100 cc mL of Isovue 300 without and with IV Contrast, Oral contrast used: without Oral Contrast None FINDINGS: CTA Abdomen and pelvis: The abdominal aorta does not demonstrate aneurysmal dilatation.. The origins of the superior mesenteric artery, renal arteries, inferior mesenteric artery, and celiac axis are p atent. The iliac vessels are normal in morphology LOWER CHEST: No evidence of focal consolidation, pneumothorax or pleural effusion. LIVER: Unremarkable GALLBLADDER AND BILE DUCTS: The gallbladder surgically absent. PANCREAS: Unremarkable. SPLEEN: Unremarkable. ADRENAL GLANDS: Unremarkable. KIDNEYS AND URETERS: No evidence of hydronephrosis or renal calculus. The ureters are unremarkable. PELVIS BLADDER: Unremarkable REPRODUCTIVE: Unremarkable. ABDOMEN & PELVIS STOMACH AND BOWEL: Evaluation of the gastrointestinal tract demonstrates no evidence of high density hemorrhage on arterial phase or pooling of blood on delayed phases. No evidence of bowel obstruction. The appendix is normal. PERITONEUM: No evidence of pneumoperitoneum or free fluid. VASCULATURE: No evidence of aortic aneurysm. MUSCULOSKELETAL: No acute osseous abnormalities LYMPH NODES: No gross evidence for lymphadenopathy. SOFT TISSUE/ABDOMINAL WALL: Postsurgical changes anterior abdominal wall with subcutaneous gas and fa t stranding changes. Fat-containing umbilical hernia. IMPRESSION Post cholecystectomy changes without evidence for organizing fluid collection. No evidence for hemato ma or possibly blood within the gastrointestinal tract to suggest gastrointestinal stromal hemorrhage .
== END 2023-07-09 21:41 | disposition home or self-care (01) ==
LOC: EC 16:24
DX: K92.1 Melena (principal); Z88.8 Allergy status to other drugs, medicaments and biological substances
CPT/HCPCS: 36415; 80053; 85025; 82272; 81001; 74174; 99285; Q9967

== ENCOUNTER → 2023-07-16 | Outpatient (CLI) | payer BC ==
[2023-07-16 14:58] LABS: Basophils # (A) 0.06 X 10*3/uL (0.00-0.10); Basophils % (A) 0.7 %; Eosinophils # (A) 0.48 X 10*3/uL (0.04-0.35); Eosinophils % (A) 5.8 %; HCT 46.1 % (37.2-46.3); HGB 14.7 g/dL (12.0-15.0); Lymphocytes # (A) 2.09 X 10*3/uL (0.90-5.00); Lymphocytes % (A) 25.1 %; MCH 27.2 pg (27.0-32.0); MCHC 31.9 g/dL (32.0-37.0); MCV 85.2 FL (80.0-97.0); Monocytes # (A) 0.53 X 10*3/uL (0.20-1.00); Monocytes % (A) 6.4 %; NRBC Per 100 WBC 0 X 10*3/uL (0.00-0.01); Neutrophils # (A) 5.16 X 10*3/uL (1.80-7.70); Neutrophils % (A) 61.9 %; Platelet Count 291 X 10*3/uL (140-440); RBC 5.41 X 10*6/uL (4.10-5.20); RDW 14.3 % (11.5-14.5); WBC 8.33 X 10*3/uL (4.50-10.00)
[2023-07-16 16:21] LABS: ALT 60 U/L (8-44); AST 32 U/L (13-35); Albumin 4.7 g/dL (3.8-4.9); Albumin/Globulin Ratio 1.52 Ratio (1.60-3.17); Alkaline Phosphatase 177 U/L (41-126); Blood Urea Nitrogen 12.4 mg/dL (9.0-27.0); Calcium 9.9 mg/dL (8.7-10.3); Carbon Dioxide 23.2 mmol/L (21.6-31.8); Chloride 103 mmol/L (96-109); Globulin 3.1 g/dL (1.6-3.3); Glucose 81 mg/dL (70-110); Potassium 4.4 mmol/L (3.5-5.5); Sodium 139 mmol/L (135-145); Total Bilirubin 0.6 mg/dL (0.3-1.2); Total Protein 7.8 g/dL (6.2-8.2)
== END | disposition home or self-care (01) ==
LOC: LABWHC1 10:43
PROVIDERS: ATTEND Surgery Plastic and Reconstructive Surgery
DX: R17 Unspecified jaundice (principal)
CPT/HCPCS: 36415; 80053; 85025

== ENCOUNTER 2024-10-09 09:56 | Inpatient (IN) | payer BC ==
[2024-10-09] MEDS ORDERED: OXYTOCIN 10 UNIT/ML 1 ML VIAL IM PRN (10:11)
[2024-10-09] MEDS ORDERED: TRANEXAMIC 1,000 MG/100ML-NACL 1,000 MG in EMPTY BAG 1 BAG IV PRN (10:11)
[2024-10-09] MEDS ORDERED: METHYLERGONOVINE 0.2 MG/ML 1 ML AMP IM PRN (10:11)
[2024-10-09] MEDS ORDERED: miSOPROStoL 200 MCG TAB PO PRN (10:11)
[2024-10-09] MEDS ORDERED: CARBOPROST TROMETHAMINE 250 MCG/ML 1 ML AMP IM PRN (10:11)
[2024-10-09 10:23] LABS: Glucose,Whole Blood 77 mg/dL (70-110)
[2024-10-09] MEDS: LACTATED RINGERS 1,000 ML IV SCH (10:44)
[2024-10-09] MEDS: CITRIC ACID-SODIUM CITRATE 15 ML CUP PO ONE (10:44)
[2024-10-09 10:51] LABS: Basophils % (A) 0 %; Eosinophils # (A) 0.1 k/uL (0-0.7); Eosinophils % (A) 1 %; Hypochromasia Slight; Lymphocytes # (A) 1.4 k/uL (1.0-4.8); Lymphocytes % (A) 18 %; MCH 24.7 pg (25.0-35.0); MCHC 31.5 g/dL (31.0-37.0); MCV 78.5 fL (80.0-100.0); Mean Platelet Volume 7.5; Monocytes # (A) 0.4 k/uL (0-1.0); Monocytes % (A) 5 %; Neutrophils # (A) 5.9 k/uL (1.3-7.7); Neutrophils % (A) 74 %; Platelet Count 322 k/uL (150-450); RBC 4.46 m/uL (3.80-5.40)
[2024-10-09] MEDS ORDERED: ePHEDrine 50 MG/ML 1 ML VIAL ONE (12:06)
[2024-10-09] MEDS ORDERED: PHENYLEPHRINE-0.9% NACL SYG 1,000 MCG/10 ML SYRINGE ONE (12:06)
[2024-10-09] MEDS ORDERED: KETOROLAC 15 MG/ML 1 ML VIAL ONE (12:06)
[2024-10-09] MEDS ORDERED: ONDANSETRON 4 MG/2 ML VIAL ONE (12:06)
[2024-10-09] MEDS ORDERED: OXYTOCIN 30 UNITS/500 ML NS BAG IV ONE (12:06)
[2024-10-09] MEDS ORDERED: MORPHINE SULFATE (PF) 0.3 MG/0.3 ML SYR ONE (12:06)
[2024-10-09] MEDS ORDERED: NALBUPHINE (ANES) 10 MG/ML - 1 ML AMP ONE (12:06)
--- NOTE | 2024-10-09 12:08 | P.HPOB ---
History of Present Illness H&P Date: 10/09/24 Chief Complaint: 39-0/7 weeks, unstable lie, previous section The patient is a 33-year-old 2 para 1-0-0-1 admitted at 39-0/7 weeks as established by last menstrual period and confirmed by 9-week ultrasound. She is admitted for repeat section having been found in breech presentation last week in the office. Bedside ultrasound today confirms vertex presentation representing a potential unstable lie. She does carry history of a previ ous section for arrest of dilation and descent. She additionally has had the complicated by gestational diabetes with excellent blood sugar control using diet alone. testing has been reassuring throughout. She additionally is known to be Rh- and received RhoGAM at 28 weeks. The patient was given the option of canceling the section and awaiting labor but has chosen instead to proceed with repeat low-transverse section given the unstable lie and her history. On labor delivery, all signs are reassuring with a category 1 heart rate tracing. Group B strep status is negative. Obstetrical history: 2 para 1-0-0-1 with 1 term section for arrest of dilation and descent. Current statistics are listed in hist ory of present illness. EDC of 10/16/2022 was established by last menstrual period and confirmed by 9-week ultrasound. Laboratory workup demonstrates blood type of B- with a negative antibody screen. Rubella status is immune. The remainder of the laboratory workup was within normal limits. Early Glucola was normal. Second trimester Glucola was elevated and followed by an abnormal 3- hour glucose tolerance test. Group B strep status is negative. Gynecologic history: Unremarkable with no history of any infections to include STDs. Review of Systems Review of systems is confined to history of present illness. Past Medical History Past Medical History: No Reported History Additional Past Medical History / Comment(s): 6 mos post , intermittent abd pain and n/v History of Any Multi-Drug Resistant Organisms: None Reported Past Surgical History: Section, Cholecystectomy Additional Past Surgical History / Comment(s): c section December 2022,wisdom teeth Past Anesthesia/Blood Transfusion Reactions: No Reported Reaction Additional Past Anesthesia/Blood Transfusion Reaction / Comment(s): no hx blood transfusion Past Psychological History: No Psychological Hx Reported Smoking Status: Never smoker Past Alcohol Use History: None Reported, Occasional Past Drug Use History: None Reported - Past Family History Mother Family Medical History: No Reported History Additional Family Medical History / Comment(s): maternal aunt breast CA Father Additional Family Medical History / Comment(s): paternal grandmother lung,colon,breast CA Medications and Allergies Home Medications Medication Instructions Recorded Confirmed Type Vit No.179/Iron/Folic 1 each PO DAILY 12/08/22 10/09/24 History [ Tablet] Allergies Allergy/AdvReac Type Severity Reaction Status Date / Time cinnamon AdvReac Rash/Hives Verified 07/09/23 16:28 Exam Vital Signs Temp Pulse Resp BP Pulse Ox 10/09/24 10:00 96.2 F L 100 18 124/69 96 Intake and Output 10/08/24 10/09/24 10/09/24 22:59 06:59 14:59 Other: Weight 93.894 kg In general, this is a well-developed, well-nourished white female in no acute distress. Her heart has a regular rhythm and rate without murmur. Her lungs are clear to auscultation bilaterally in all ceballos. Her abdomen is gravid, nondistended, has normal active bowel sounds, is soft, nontender, and without any palpable masses aside from the uterine fundus. Her extremities are without any cyanosis, clubbing, or edema and are nontender to palpation bilaterally. Digital cervical examination is deferred. Results Result Diagrams: 10/09/24 10:39 Abnormal Lab Results - Last 24 Hours (Table) 10/09/24 Range/Units 10:39 Hgb 11.0 L (11.4-16.0) gm/dL MCV 78.5 L (80.0-100.0) fL MCH 24.7 L (25.0-35.0) pg Assessment and Plan (1) Unstable lie of fetus Current Visit: Yes Status: Acute Code(s): O32.0XX0 - MATERNAL CARE FOR UNSTABLE LIE, NOT APPLICABLE OR UNSP SNOMED Code(s): 76969862 (2) Previous section Current Visit: Yes Status: Acute Code(s): Z98.891 - HISTORY OF UTERINE SCAR FROM PREVIOUS SURGERY SNOMED Code(s): 003175907 (3) Term Current Visit: Yes Status: Acute Code(s): Z34.90 - ENCNTR FOR SUPRVSN OF NORMAL , UNSP, UNSP TRIMESTER SNOMED Code(s): 35194415 Plan: The patient has been admitted for repeat low-transverse section. Having found the fetus in vertex presentation, she was given the option of canceling the section but declined in favor of proceeding with repeat section. The risks and complications have been thoroughly discussed. She has understood and agreed to proceed.
[2024-10-09] MEDS ORDERED: diphenhydrAMINE 25 MG CAP PO PRN (13:00)
[2024-10-09] MEDS ORDERED: SIMETHICONE 80 MG CHEWABLE PO PRN (13:00)
[2024-10-09] MEDS ORDERED: KETOROLAC 15 MG/ML 1 ML VIAL IVP PRN (13:00)
[2024-10-09] MEDS ORDERED: OXYTOCIN 30 UNITS/500 ML NS 30 UNIT in SALINE 1 500ML.BAG IV SCH (13:00)
[2024-10-09] MEDS ORDERED: NALOXONE 0.4 MG/ML 1 ML VIAL IV PRN (13:00)
[2024-10-09] MEDS ORDERED: ZOLPIDEM 5 MG TAB PO PRN (13:00)
[2024-10-09] MEDS ORDERED: ONDANSETRON 4 MG/2 ML VIAL IVP PRN (13:00)
[2024-10-09] MEDS ORDERED: diphenhydrAMINE 50 MG CAP PO PRN (13:00)
[2024-10-09] MEDS ORDERED: diphenhydrAMINE 50 MG/ML 1 ML VIAL IVP PRN ×2 (13:00)
[2024-10-09] MEDS ORDERED: LANOLIN CREAM 1 GM TUBE TOPICAL PRN (13:00)
--- NOTE | 2024-10-09 13:00 | P.OP ---
Date of Procedure: 10/09/24 Preoperative Diagnosis: 1. 39-0/7 weeks, previous section #2. Unstable lie Postoperative Diagnosis: Same Procedure(s) Performed: 1. Repeat low-transverse section Anesthesia: spinal Surgeon: Jacob Johnson Bench Technician #1: Leann Saavedra Estimated Blood Loss (ml): 306 IV fluids (ml): 1,000 Urine output (ml): 30 Pathology: none sent Condition: stable Disposition: floor Operative Findings: The patient was taken to the operating room where she was delivered of a viable 6 pound 13 ounce baby girl with Apgars of 9 at 1 minute and 9 at 5 minutes delivered in the left occiput anterior position. The placenta was delivered manually, intact, and grossly normal with a grossly normal three-vessel cord. The uterus, tubes, and ovaries were entirely normal to inspection. There was an average amount of scarring through the fascia and rectus muscles from previous section. Description of Procedure: Patient was prepped and draped in usual fashion after spinal anesthesia was administered by the anesthesiologist. A Pfannenstiel incision was made through pre-existing scar and extended into the abdominal cavity without difficulty. The bladder peritoneum was noted to be significantly enough distal to the intended site of incision that it was left intact. A 2 cm incision was made in the transverse plane of the lower uterine segment to enter the uterus at which time clear fluid was noted. The incision was extended both directions using the bandage scissors. The head was delivered up and through the incision where the nose and mouth were thoroughly suction. The remainder of the infant was delivered onto the field where the cord was doubly clamped, cut, and the passed resuscitative measures with weight and Apgars as noted above. cord blood was collected per protocol for Rh- maternal blood type. A segment of cord was doubly clamped, cut, and set aside should cord gases become necessary the placenta was delivered manually, intact, grossly normal with a grossly normal three-vessel cord. The uterus was exteriorized and the anterior cavity the uterus swept of any remaining placental or membranous fragments. The margins of the uterine incision were grasped with Lee clamps and the incision closed in 2 layers. The first layer was a running locking stitch of 0 chromic catgut from margin to margin followed by a running imbricating stitch of 0 chromic catgut from margin to margin. Hemostasis appeared to be excellent. The posterior cul-de-sac was suctioned using a guard followed by laparotomy spon ge. The uterine and ovarian findings were normal as noted above. The uterus was replaced within the abdominal cavity and the gutters swept of any remaining blood, fluid, or clot. The uterine incision was reexamined and found to be hemostatic. The parietal peritoneum was loosely reapproximated and the layer of muscles examined and found to be hemostatic. The fascia was closed with a single running stitch of 0 Vicryl proceeding from margin to margin. The subcutaneous tissues were irrigated, made hemostatic with the Bovie, and reapproximated with a running stitch of 3-0 plain catgut. The skin was reapproximated with a running subcuticular stitch of 4-0 Vicryl from margin to margin followed by half-inch Steri-Strips placed with Mastisol. Quantitative blood loss for the case was 306 mL. There were no complications. All sponge, instrument, and needle counts were correct. Both mother and infant are resting comfortably in recovery.
[2024-10-09] MEDS: ACETAMINOPHEN TAB 500 MG TAB PO SCH (16:25)
[2024-10-09] MEDS: Rhogam IMMUNE GLOBULIN 1,500 UNIT/1 ML IM ONE (17:16)
[2024-10-09] MEDS: SENNOSIDES-DOCUSATE SODIUM 1 EACH TAB PO SCH (20:39)
[2024-10-09] MEDS: METOCLOPRAMIDE 5 MG/ML 2 ML VIAL IVP PRN (20:39)
[2024-10-10 01:32] VITALS: RESP 16
[2024-10-10] MEDS: IBUPROFEN 800 MG TAB PO SCH (03:51)
[2024-10-10 04:43] LABS: Basophils % (A) 0 %; Eosinophils # (A) 0.2 k/uL (0-0.7); Eosinophils % (A) 2 %; HCT 32.3 % (34.0-46.0); HGB 10.4 gm/dL (11.4-16.0); Hypochromasia Moderate; Lymphocytes # (A) 1.6 k/uL (1.0-4.8); Lymphocytes % (A) 20 %; MCH 25.8 pg (25.0-35.0); MCHC 32.3 g/dL (31.0-37.0); MCV 79.7 fL (80.0-100.0); Mean Platelet Volume 7.9; Monocytes # (A) 0.4 k/uL (0-1.0); Monocytes % (A) 5 %; Neutrophils # (A) 5.8 k/uL (1.3-7.7); Neutrophils % (A) 71 %; Platelet Count 299 k/uL (150-450); RBC 4.05 m/uL (3.80-5.40); WBC 8.2 k/uL (3.8-10.6)
--- NOTE | 2024-10-10 07:50 | P.PNOBGPC ---
Subjective - Subjective Principal diagnosis: s/p RLTCS POD #1 Interval history: Patient seen and examined. Denies nausea, vomiting, chest pain, shortness of breath or calf pain. Patient reports: Reports appetite normal, Reports voiding normally, Reports pain well controlled, Reports ambulating normally : doing well Objective - Vital Signs Latest vital signs: Vital Signs Temp Pulse Resp BP Pulse Ox 10/10/24 00:32 97.7 F 87 16 120/83 98 10/09/24 20:05 97.5 F L 82 18 125/81 98 10/09/24 16:00 98 F 84 16 107/70 10/09/24 14:56 97.8 F 97 16 102/66 97 10/09/24 14:41 79 16 99/66 96 10/09/24 14:26 85 16 103/70 97 10/09/24 14:11 83 16 102/67 96 10/09/24 13:56 87 16 108/69 95 10/09/24 13:41 84 16 104/93 96 10/09/24 13:26 83 16 101/59 97 10/09/24 13:11 97 16 104/51 96 10/09/24 12:56 96.3 F L 83 16 100/59 96 10/09/24 10:00 96.2 F L 100 18 124/69 96 Intake and Output 10/09/24 10/10/24 10/10/24 22:59 06:59 14:59 Intake Total 50 Output Total 250 350 Balance -200 -350 Intake: Oral 50 Output: Urine 250 350 Uretheral (Haddad) 250 - Exam Lungs: bilateral: normal Chest: Normal S1, Normal S2 Extremities: Present: normal Abdomen: Present: normal appearance, soft. Absent: distention, tenderness Incision: Present: normal, dry, intact Uterus: Present: normal, firm - Labs Labs: Abnormal Lab Results - Last 24 Hours (Table) 10/09/24 10/10/24 Range/Units 10:39 04: Hgb 11.0 L 10.4 L (11.4-16.0) gm/dL Hct 32.3 L (34.0-46.0) % MCV 78.5 L 79.7 L (80.0-100.0) fL MCH 24.7 L (25.0-35.0) pg Assessment and Plan (1) Status post repeat low transverse section Current Visit: Yes Status: Acute Code(s): Z98.891 - HISTORY OF UTERINE SCAR FROM PREVIOUS SURGERY SNOMED Code(s): 014313465 Plan: 1. cont po care
[2024-10-10] MEDS ORDERED: IBUPROFEN 800 MG TAB PO SCH (12:00)
[2024-10-11 00:57] VITALS: BP 122/84
[2024-10-11 09:13] VITALS: PULSE 86; TEMP 97.8
--- NOTE | 2024-10-11 10:25 | P.DS ---
Providers Date of admission: 10/09/24 09:56 Expected date of discharge: 10/11/24 Attending physician: Jacob Johnson Primary care physician: Stated None - Discharge Diagnosis(es) (1) Status post repeat low transverse section Current Visit: Yes Status: Acute Hospital Course: Patient presented for and underwent a repeat low-transverse . Po stoperative course was uncomplicated. She denies nausea, vomiting, chest pain, shortness of breath or calf pain. Patient will be discharged home postoperative day #2 in stable condition to follow-up with Dr. Johnson in 2 weeks. Plan - Discharge Summary New Discharge Prescriptions: No Action Vit No.179/Iron/Folic [ Tablet] 1 each PO DAILY Discharge Medication List Vit No.179/Iron/Folic [ Tablet] 1 each PO DAILY 12/08/22 [History] Follow up Appointment(s)/Referral(s): Jacob Johnson MD [STAFF PHYSICIAN] - 10/29/24 11:15 am (Post Partam Appt. November 20, 2024 @1:00PM) Discharge Disposition: HOME SELF-CARE
--- NOTE | 2024-10-12 17:15 | P.PN ---
Progress Note - Text 10/10/24 631am 33-year-old female status post with spinal Duramorph. Patient seen and evaluated for postop pain control, she has a VAS of 3 with no complaints of nausea vomiting or pruritus
== END 2024-10-11 14:50 | disposition home or self-care (01) | DRG 788 ==
LOC: 4NBN 09:56 → 4FBP 10:02
PROVIDERS: ADMIT Obstetrics & Gynecology; ATTEND Obstetrics & Gynecology
PROC: 3E0234Z Introduction of Serum, Toxoid and Vaccine into Muscle, Percutaneous Approach (ICD-10-PCS; principal; 2024-10-09 12:20)
PROC: 10D00Z1 Extraction of Products of Conception, Low, Open Approach (ICD-10-PCS; principal; 2024-10-09 12:20)
DX: O32.0XX0 Maternal care for unstable lie, not applicable or unspecified (principal); O24.420 Gestational diabetes mellitus in childbirth, diet controlled; O34.211 Maternal care for low transverse scar from previous cesarean delivery; O26.893 Other specified pregnancy related conditions, third trimester; Z67.21 Type B blood, Rh negative; Z3A.39 39 weeks gestation of pregnancy; Z37.0 Single live birth
CPT/HCPCS: 83036; 85025; 85461; 86850; 86900; 86901